=== PATIENT | male | born 1930 ===

== ENCOUNTER 2019-04-25 21:27 | Observation (INO) | payer MEDICARE, BC ==
[2019-04-25] MEDS: SODIUM CHLORIDE 0.9% FLUSH 10 ML SOL IV PRN ×2 (21:30→22:39)
[2019-04-25] MEDS ORDERED: ASPIRIN 81 MG CHEWABLE CTB PO STA (21:40)
[2019-04-25] MEDS ORDERED: NITROGLYCERIN 0.4 MG TAB SL PRN (21:40)
[2019-04-25 21:44] LABS: BASOPHILS % (AUTO) 2 % (0-3); EOSINOPHILS % (AUTO) 3 % (0-9); HEMATOCRIT 41 % (39-53); HEMOGLOBIN 13.7 gm/dl (13.5-17.7); LYMPHOCYTES % (AUTO) 36.4 % (10-50); MEAN CORPUSCULAR HEMOGLOBIN 30.8 pg (27.0-32.0); MEAN CORPUSCULAR HGB CONC 33.4 gm/dl (32.0-36.0); MEAN CORPUSCULAR VOLUME 92 fL (80-100); MONOCYTES % (AUTO) 10.5 % (0-12); NEUTROPHILS % (AUTO) 48.6 % (37-80)
[2019-04-25 21:56] LABS: INR 0.98 (0.87-1.13)
[2019-04-25 21:57] LABS: BLOOD UREA NITROGEN 17 mg/dl (7-18); CALCIUM 8.5 mg/dl (8.5-10.1); CARBON DIOXIDE 24.9 mEq/L (21-32); CHLORIDE 102 mMol/L (98-107); CREATINE KINASE 140 U/L (39-308); CREATININE 1.05 mg/dl (0.80-1.30); GLUCOSE 132 mg/dl (74-106); TROP I < 0.017 ng/ml (0.000-0.056)
[2019-04-25] MEDS ORDERED: ASPIRIN 81 MG CHEWABLE CTB ONE (22:06)
[2019-04-25] MEDS ORDERED: HYDRALAZINE HYDROCHLORIDE 20 MG/ML SOL IV SCH ×2 (22:30→23:30)
[2019-04-25] MEDS ORDERED: HYDRALAZINE HYDROCHLORIDE 20 MG/ML SOL ONE (22:36)
[2019-04-25 23:56] VITALS: O2SAT 96
[2019-04-26] MEDS ORDERED: HYDRALAZINE HYDROCHLORIDE 20 MG/ML SOL IV PRN (00:20)
[2019-04-26] MEDS ORDERED: ASPIRIN 81 MG CHEWABLE CTB PO SCH (12:30)
[2019-04-26 13:00] VITALS: BP 128/74; PULSE 54; RESP 12; TEMP 97.8
== END 2019-04-26 13:00 | disposition other institution (70) | DRG 313 ==
LOC: ED 21:27 → ACUTE CARE 23:27
PROVIDERS: ADMIT Family Medicine; ATTEND Family Medicine
DX: R07.9 Chest pain, unspecified (principal)
CPT/HCPCS: 36415; 71045; 80048; 82550; 83880; 84484; 85025; 85610; 85730; 93005; 93012; 96374; 99217; 99218; 99285; J0360